=== PATIENT | male | born 1985 | race African-American/Black ===

== ENCOUNTER 2018-06-02 13:05 | Outpatient (CLI) | payer MEDICAID ==
[~2018-06-02] VITALS: Ht 185.4 cm; Wt 230.9 kg
[2018-06-02 13:00] VITALS: BP 150/98
[2018-06-02] MEDS ORDERED: CHLORTHALIDONE25 MG ORAL (14:22)
[2018-06-02] MEDS ORDERED: LISINOPRIL5 MG ORAL (14:22)
[2018-06-02] MEDS ORDERED: ADALAT10 MG ORAL (14:22)
--- NOTE | 2018-06-02 14:25 | GI Initial Consult Note ---
History of Present Illness General Date patient seen: Jun 02, 2018 Time patient seen: 14:18 Reason for Consultation: EGD Present Illness HPI 32 year old male patient with history of only Morbid Obesity, s/p gastric bypass in 2008 presents today with c/o of inability to lose any weight. The patient states he's adhere to a strict diet and has exercised regularly to lower his weight, but has been unable to maintain the loss of weight and has returned to his normal state. Has occasional abdominal pain, c/o of stomach cramping after BM. Also noted has history of hemorrhoids. Patient here today to scheduled EGD to evaluate his gastric bypass. Plans to have a gastric bypass revision scheduled. Denies any N/V/D or constipation. No signs of abuse or neglect. Patient is not fall risk. Home Meds Reported Medications Chlorthalidone* (CHLORTHALIDONE*) Unknown Strength Tablet, ORAL DAILY, TAB 06/02/18 Nifedipine (Nifedipine*) Unknown Strength Capsule, ORAL EVERY 6 HOURS, CAP 06/02/18 Lisinopril (LISINOPRIL*) Unknown Strength Tablet, ORAL DAILY, TAB 06/02/18 Allergies: Coded Allergies: No Known Allergies (Verified Allergy, Unknown, 04/26/08) Patient History History Provided By: Patient, Medical Record [facility] Narrative Morbid Obesity Past Surgical History: Gastric bypass 2008 Social History: Reports: other - coffee daily; Denies: smoking, alcohol use, drug use Review of Systems All Other Systems: negative except mentioned in HPI Physical Exam T 99.2 BP 150/98 P 86 96 RA HT 6'1 WT 509.7 lbs Sp02 EP Interpretation: reviewed, normal General Appearance: well appearing, no apparent distress, alert, obese Head: normocephalic EENT: PERRL/EOMI, normal ENT inspection Neck: supple Respiratory: normal breath sounds, no respiratory distress Cardiovascular: normal rate Gastrointestinal: normal inspection, non tender, soft, normal bowel sounds, non -distended Rectal: deferred Genitourinary: deferred Musculoskeletal: normal inspection, back normal Neurologic: normal inspection, alert, oriented x3, responsive Psychiatric: normal inspection, judgement/insight normal, memory normal Skin: normal inspection, normal color, no rash, warm/dry, palpation normal, well hydrated Lymphatic: normal inspection, no adenopathy GI: Plan Problems: (1) Morbid obesity (2) H/O gastric bypass (3) Hemorrhoid Plan EGD to be scheduled pending prior authorization. - NPO @ [place] day prior procedure explained to patient. Seen with Dr. Dumont. Thank you for this patient referral. The patient was seen and examined at bedside and all new and available data was reviewed in the patients chart. I agree with the above findings, impression and plan. (Patient seen earlier today. Signature stamp does not reflect patient encounter time.). - MD Dionicio [facility] MANAGED SERVICES CONSULTANT Jun 02, 2018 14:25
[2018-06-02] MEDS ORDERED: NYSTATIN100000 UN1 ORAL (15:53)
[2018-06-02] MEDS ORDERED: NIFEDIPINE ER90 M2 ORAL (15:53)
== END 2018-06-02 13:35 | disposition home or self-care (01) ==
LOC: PAN 13:05
DX: R10.9 Unspecified abdominal pain (principal); E66.01 Morbid (severe) obesity due to excess calories; Z98.84 Bariatric surgery status; K64.9 Unspecified hemorrhoids
CPT/HCPCS: 99212

== ENCOUNTER 2018-06-29 09:54 | Day surgery (SDC) | payer MEDICAID ==
[~2018-06-29] VITALS: Ht 185.4 cm; Wt 217.7 kg
[2018-06-29] VITALS (9 sets, daily range): BP systolic 123–151; BP diastolic 72–87
--- NOTE | 2018-06-29 06:56 | Anethesia Preoperative Eval ---
Anesthesia Pre-op PMH/ROS General Date of Evaluation: Jun 29, 2018 Time of Evaluation: 06:54 Anesthesiologist: bryce ASA Score: ASA 3 Mallampati Score Class I : Soft palate, uvula, fauces, pillars visible Class II: Soft palate, uvula, fauces visible Class III: Soft palate, base of uvula visible Class IV: Only hard plate visible Mallampati Classification: Class II Surgeon: cici Diagnosis: abdominal pain Surgical Procedure: egd Anesthesia History: none Social History: smoking, alcohol use Family History: no anesthesia problems Allergies: Coded Allergies: No Known Allergies (Verified , 06/29/18) Medications: see eMAR Past Medical History Cardiovascular: Reports: HTN Gastrointestinal/Genitourinary: Reports: other - hx/o gastric bypass Other: obesity Anesthesia Pre-op Phys. Exam Physician Exam Last Vital Signs Date Time Temp Pulse Resp B/P (MAP) Pulse Ox O2 Delivery O2 Flow Rate FiO2 06/29/18 10:36 98.0 80 18 131/84 (100) 100 98.0 06/29/18 10:19 Room Air Constitutional: NAD Neurologic: CN 2-12 intact Cardiovascular: RRR Respiratory: CTA Gastrointestinal: S/NT/ND Airway Exam Mallampati Score: Class II MO: full Neck: short TMD: 2fb ROM: full Teeth: intact Anesthesia Pre-op A/P Risk Assessment & Plan Assessment: asa3 Plan: mac Status Change Before Surgery: No Pre-Antibiotics Drug: Priya Winters MD Jun 29, 2018 06:56
[~2018-06-29 09:54] MED LIST: ADALAT10 MG ORAL; Atropine Inj 1mg/10ml Syr IV PRN; CHLORTHALIDONE25 MG ORAL; DiphenhydrAMINE 50mg/ml Inj IVP PRN; LISINOPRIL5 MG ORAL; Midazolam 2mg/2ml Inj IVP PRN; NIFEDIPINE ER90 M2 ORAL; NYSTATIN100000 UN1 ORAL; fentaNYL 100 mcg/2 mL IV PRN
--- NOTE | 2018-06-29 11:57 | Pre-Procedure Note/Attestation ---
Pre-Procedure Note/Attestation Complete Prior to Procedure Planned Procedure: not applicable Procedure Narrative: EGD Indications for Procedure Pre-Operative Diagnosis: morbid obesity Attestation I attest that I discussed the nature of the procedure; its benefits; risks and complications; and alternatives (and the risks and benefits of such alternatives ), prior to the procedure, with the patient (or the patient's legal aircraft sales representative). I attest that, if there was a reasonable possibility of needing a blood transfusion, the patient (or the patient's legal aircraft sales representative) was given the [facility] standardized written summary, pursuant to the [place] Blood Safety Act ([place] Health and Safety Code # 1645, as amended). I attest that I re-evaluated the patient just prior to the surgery and that there has been no change in the patient's H&P, except as documented below: Nicolas Dumont MD Jun 29, 2018 11:57
[2018-06-29] MEDS ORDERED: Lidocaine 1% MPF 10mg/ml 5ml ONE (12:00)
[2018-06-29] MEDS ORDERED: Propofol 200mg/20ml IV ONE (12:00)
--- NOTE | 2018-06-29 12:40 | Endoscopy Procedure Note ---
Endoscopy Procedure Note General Indication for Procedure: pre bariatric surg eval Procedures Performed: EGD Operative Findings/Diagnosis: gastritis Specimen: none Pt Tolerated Procedure Well: Yes Estimated Blood Loss: none Anesthesia Anesthesiologist: bryce Anesthesia: MAC Inserted Devices Implant(s) used?: No GI Core Measures 50 yrs or older w/o bx or poly: Not Applicable 10yrs. F/U not recommended: Not Applicable Nicolas Dumont MD Jun 29, 2018 12:40
--- NOTE | 2018-06-29 12:57 | Immediate Post-Op Evaluation ---
Immediate Post-Op Evalulation Immediate Post-Op Evalulation Procedure: egd Date of Evaluation: Jun 29, 2018 Time of Evaluation: 12:57 IV Fluids: 1000ml 0.9ns Blood Products: none Estimated Blood Loss: neglgible Blood Pressure Systolic: 135 Blood Pressure Diastolic: 77 Pulse Rate: 75 Respiratory Rate: 18 O2 Sat by Pulse Oximetry: 98 Temperature (Fahrenheit): 97.1 Pain Score (1-10): 0 Nausea: No Vomiting: No Complications none Patient Status: awake, reacts, patent Hydration Status: adequate Drug: Priya Winters MD Jun 29, 2018 12:57
--- NOTE | 2018-06-29 14:08 | 48 Hour Post Anesthesia Eval ---
Post Anesthesia Evaluation Procedure: egd Date of Evaluation: Jun 29, 2018 Time of Evaluation: 13:00 Blood Pressure Systolic: 123 0: 72 Pulse Rate: 73 Respiratory Rate: 18 Temperature (Fahrenheit): 97.1 O2 Sat by Pulse Oximetry: 98 Airway: patent Nausea: No Vomiting: No Pain Intensity: 0 Hydration Status: adequate Cardiopulmonary Status: stable Mental Status/LOC: patient returned to baseline Post-Anesthesia Complications: none Follow-up care needed: N/A Priya Dhillon MD Jun 29, 2018 14:08
--- NOTE | 2018-06-29 17:45 | Procedure Note ---
DATE OF PROCEDURE: 06/29/2018 SURGEON: Nicolas Dumont M.D. ANESTHESIOLOGIST: Dr. Ott. PROCEDURE: Upper endoscopy. ANESTHESIA: Per Dr. Ott. INSTRUMENT: Olympus adult flexible upper endoscope. INDICATION: This is a 32-year-old male with history of morbid obesity, status post gastric bypass, still not losing weight, and not getting re-evaluated for revision, so referred for repeat endoscopy prior to surgery. The procedure, risks, benefits, and possible consequences, including hemorrhage, aspiration, perforation and infection, and alternative treatments, were explained to the patient/legal guardian by Dr. Nicolas Dumont and the patient/legal guardian understood and accepted these risks. DESCRIPTION OF PROCEDURE: After informed consent was obtained and the patient was adequately sedated, Olympus upper endoscope was advanced from the mouth into the esophagus and subsequently to the stomach. This procedure was definitely difficult. We had hard time sedating this patient. He is morbidly obese and he was retching throughout the procedure. The patient had evidence of relatively large gastric pouch for the gastric bypass. No evidence of any anastomotic ulceration. Small intestinal mucosa grossly looked within normal limits. At this time given the patient was not tolerating the procedure very well, we removed the scope and the procedure was terminated. SUMMARY OF FINDINGS: Relatively limited study given difficulty with sedation. Relatively large gastric pouch without any anastomotic ulcerations. No evidence of any obvious large hiatal hernia. Nicolas Dumont M.D. DR: Nic JOB#: [id number] CC:
--- NOTE | 2018-07-01 10:27 | Short Stay Surgery H&P ---
History of Present Illness History of Present Illness Chief Complaint see recent office note HPI Eriberto Angel is a 32 year old male who was admitted on for Abdominal Pain Patient History Allergies: Coded Allergies: No Known Allergies (Verified , 06/29/18) Medication History Scheduled Chlorthalidone* (Chlorthalidone*), 25 ORAL DAILY, (Reported) Lisinopril (Lisinopril*), 40 ORAL DAILY, (Reported) Nifedipine Er* (Nifedipine Er*), 90 MG ORAL DAILY, (Reported) Discontinued Medications Nystatin* (Nystatin*), 5 ML ORAL FOUR TIMES A DAY, (Reported) Discontinued Reason: Pt stopped taking med Physical Exam Vital Signs Last Vital Signs Date Time Temp Pulse Resp B/P (MAP) Pulse Ox O2 Delivery O2 Flow Rate FiO2 06/29/18 14:08 206.8 73 18 98 06/29/18 14:00 139/83 (101) 06/29/18 13:15 Room Air Plan Attestation Are the patient's medical conditions optimized for surgery? Nicolas Dumont MD Jul 01, 2018 10:27
== END 2018-06-29 14:00 | disposition home or self-care (01) ==
LOC: GAS 09:54
DX: R10.9 Unspecified abdominal pain (principal); I10 Essential (primary) hypertension; E66.01 Morbid (severe) obesity due to excess calories; Z98.84 Bariatric surgery status
CPT/HCPCS: 43239; 93005; J2704; Z7512; 94003; 94150